=== PATIENT | male | born 1980 | race Caucasian/White ===

== ENCOUNTER → 2020-06-22 13:09 | Outpatient (BNVA) | payer SELFPAY | PROVIDERS: Referring Provider Family Medicine; Visit Provider Specialist | DX: S62.307A Unspecified fracture of fifth metacarpal bone, left hand, initial encounter for closed fracture (principal); X58.XXXA Exposure to other specified factors, initial encounter | CPT/HCPCS: 73130 ==

== ENCOUNTER 2020-06-22 14:49 | Outpatient (CLI) | payer SELFPAY | END 2020-06-22 14:50 | disposition home or self-care (01) | LOC: SPT 14:50 | PROVIDERS: Visit Provider Specialist | DX: Z46.89 Encounter for fitting and adjustment of other specified devices (principal); S62.367D Nondisplaced fracture of neck of fifth metacarpal bone, left hand, subsequent encounter for fracture with routine healing; X58.XXXD Exposure to other specified factors, subsequent encounter | CPT/HCPCS: 97760; L3984 ==

== ENCOUNTER → 2020-07-13 08:11 | Outpatient (BNVA) | payer SELFPAY | PROVIDERS: Visit Provider Specialist | DX: S62.307A Unspecified fracture of fifth metacarpal bone, left hand, initial encounter for closed fracture (principal); X58.XXXA Exposure to other specified factors, initial encounter | CPT/HCPCS: 73130 ==

== ENCOUNTER 2021-10-24 07:36 | Emergency (ER) | payer MEDICAID, SELFPAY ==
[2021-10-24 07:45] VITALS: BP 105/64; PULSE 71; RESP 20; TEMP 36.4; O2SAT 99; BMI 29.8
--- NOTE | 2021-10-24 07:45 | XRR_ITS ---
PROCEDURE INFORMATION: Exam: XR Chest Exam date and time: 10/24/2021 8:13 AM Age: 41 years old Clinical indication: Pain; Chest pressure; Additional info: Cp TECHNIQUE: Imaging protocol: XR of the chest. Views: 1 view. COMPARISON: No relevant prior studies available. FINDINGS: Lungs: No focal airspace disease. Pleural spaces: Unremarkable. No pleural effusion. No pneumothorax. Heart/Mediastinum: Cardiomediastinal silhouette is within normal limits. Bones/joints: Unremarkable. XR/XR chest 1V portable [id number] IMPRESSION: No acute cardiopulmonary abnormality.
--- NOTE | 2021-10-24 07:45 | ECG_ITS ---
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 Measurements Intervals [place] Rate: 70 P: 66 TX: 148 QRS: 61 QRSD: 91 T: 64 QT: 356 QTc: 387 Interpretive Statements SINUS RHYTHM EARLY REPOLARIZATION [ST ELEVATION WITH NORMALLY INFLECTED T-WAVE] INTERPRETATION BASED ON A DEFAULT AGE OF 39 YEARS No previous ECG available for comparison Electronically Signed On 10-24-2021 9:23:58 CDT by Parvez Quintana M.D. [id number] f
--- NOTE | 2021-10-24 08:10 | W.ED.CHESTPA ---
HPI - Chest Pain General: Chief Complaint: Chest Pain Stated Complaint: chest pain Time Seen by Provider: 10/24/21 07:45 Source: patient Mode of arrival: ambulatory Limitations: no limitations History of Present Illness: 41-year-old male who states that he diagnosed with A. fib 3 to 4 weeks ago and had a cardioversion. He states that he woke up this morning and was having palpitations he states he checked his heart rate and was jumping from the 60s to the 120s here he has been in the 60s the whole time he admitted here on the monitor was in the room. He states he is also having some chest pain and shortness of breath he states pain is sharp in nature rates it a 5 out of 10 denies any worsening improving factors. Associated symptoms: Reports palpitations; Deny abdominal pain, dyspnea, fever(s), nausea or vomiting Review of Systems Const: Denies: fever(s), chills, body aches or change in appetite Eyes: Denies: blurry vision or eye discomfort ENMT: Denies: throat pain or dental pain Card: Reports: chest pain and palpitations Resp: Denies: dyspnea GI: Denies: abdominal pain, nausea, vomiting or diarrhea : Denies: dysuria Musc: Denies: neck pain or back pain Skin/Breast: Denies: rash Neuro: Denies: headache(s) Psych: Denies: depression Rolando/Lymph: Denies: easy bruising All/Imm: Denies: urticaria PFSH ED PFSH: Family History Mother Cancer Grandfather Cancer Social History Smoking and tobacco status: current every day smoker cigarettes Quit status (tobacco): not considering quitting Smoking risk assessment/counseling performed?: No Alcohol intake: former Desire information about alcohol rehabilitation?: No Counseling given: No Physical Exam Const: COMMON NORMALS: no acute distress, patient oriented x3 and healthy appearing HENMT: COMMON NORMALS: normocephalic and atraumatic HEAD & SCALP: normocephalic and atraumatic Eye: COMMON NORMALS: Equal, round and reactive pupils present and EOMs intact bilaterally PUPIL: Yes Equal, round and reactive pupils present Neck/C-Spine: COMMON NORMALS: full ROM and supple Chest: COMMONS NORMALS: normal inspection of the chest and normal palpation of entire chest wall Resp: COMMON NORMALS: normal respiratory effort, No retractions, No use of accessory muscles and clear to auscultation bilaterally AUSCULTATION: clear to auscultation bilaterally Cardio: COMMON NORMALS: regular rate, regular rhythm and No murmurs present (Cardio) RATE: regular rate RHYTHM: regular rhythm GI: COMMON NORMALS: Normal to inspection, nondistended, normoactive bowel sounds present, Soft to palpation, non-tender and no masses PALPATION: Yes Soft to palpation Extremity: COMMON NORMALS: normal to inspection and full ROM Neuro: COMMON NORMALS: patient oriented x3, moves all extremities and no focal motor deficits Psych: COMMON NORMALS: mental status grossly normal, Normal thought process present and cooperative THOUGHT PROCESS: Normal thought process present Skin: COMMON NORMALS: no rashes or lesions noted and no wounds GENERAL SKIN EXAM: no rashes or lesions noted Course Vital Signs: Vital signs: Vital Signs Temperature 97.6 F 10/24/21 07:45 Pulse Rate 66 10/24/21 10:05 Respiratory Rate 23 H 10/24/21 10:05 Blood Pressure 105/66 10/24/21 10:05 Pulse Oximetry 94 10/24/21 10:05 MDM - Chest Pain Medical Decision Making Patient presents here with chest pain that is atypical in nature. Patient was quite anxious when he first arrived likely as he is scared that he was in A. fib again. He is not in A. fib here is blood work here is all normal he is stable for discharge he actually has follow-up with his emergency specialist on Monday and is to follow-up as scheduled he is return if worsening he understands agrees to plan. Lab Data : 10/24/21 08:05 10/24/21 08:05 Radiology Impressions Chest X-Ray 10/24/21 07:45 IMPRESSION: No acute cardiopulmonary abnormality. Laboratory Results WBC 16.1 10^3/uL (4.0-10.0) H 10/24/21 08:05 RBC 5.21 10^6/uL (4.1-5.3) 10/24/21 08:05 Hgb 15.7 g/dL (11.7-16.6) 10/24/21 08:05 Hct 45.6 % (42.0-52.0) 10/24/21 08:05 MCV 87.5 fl (80-94) 10/24/21 08:05 MCH 30.1 pg (28.0-34.0) 10/24/21 08:05 MCHC 34.4 g/dL (30.0-36.0) 10/24/21 08:05 RDW 12.7 % (12.1-15.1) 10/24/21 08:05 Plt Count 230 10^3/cmm (130-400) 10/24/21 08:05 MPV 10.7 fL (7.4-10.4) H 10/24/21 08:05 Neut % (Auto) 79.4 % 10/24/21 08:05 Lymph % (Auto) 11.5 % 10/24/21 08:05 [place] % (Auto) 6.6 % 10/24/21 08:05 Eos % (Auto) 1.2 % 10/24/21 08:05 Baso % (Auto) 0.4 % 10/24/21 08:05 Neut # (Auto) 12.81 10^3/uL (1.8-7.7) H 10/24/21 08:05 Lymph # (Auto) 1.9 10^3/uL (0.8-4.8) 10/24/21 08:05 [place] # (Auto) 1.1 10^3/uL (0.2-0.9) H 10/24/21 08:05 Eos # (Auto) 0.2 10^3/uL (0.0-0.8) 10/24/21 08:05 Baso # (Auto) 0.1 10^3/uL (0.0-0.1) 10/24/21 08:05 Nucleated RBC % (auto) 0 % 10/24/21 08:05 Nucleated RBCs # 0.0 /100WBC 10/24/21 08:05 D-Dimer 0.29 ug/mIFEU (0-0.59) 10/24/21 08:05 Sodium 137 mmol/L (136-145) 10/24/21 08:05 Potassium 4.2 mmol/L (3.5-5.1) 10/24/21 08:05 Chloride 103 mmol/L (98-107) 10/24/21 08:05 Carbon Dioxide 22 mmol/L (22-29) 10/24/21 08:05 Anion Gap 16.2 (5-19) 10/24/21 08:05 BUN 12 mg/dL (6-20) 10/24/21 08:05 Creatinine 1.1 mg/dL (0.7-1.2) 10/24/21 08:05 GFR Calculation 73.4 mL/min (90-130) L 10/24/21 08:05 Glucose 105 mg/dL (65-115) 10/24/21 08:05 Calculated Osmolality 284 mOsm/kg (285-295) L 10/24/21 08:05 Calcium 9.3 mg/dL (8.5-10.5) 10/24/21 08:05 Total Bilirubin 0.6 mg/dL (0.15-1.2) 10/24/21 08:05 AST 23 U/L (0-40) 10/24/21 08:05 ALT 56 U/L (0-41) H 10/24/21 08:05 Alkaline Phosphatase 100 IU/L (40-130) 10/24/21 08:05 Troponin T Baseline 6 ng/L (0-15) 10/24/21 08:05 Troponin T 120 Minute 6.00 ng/L (0-15) 10/24/21 09:52 Total Protein 7.0 g/dL (6.6-8.7) 10/24/21 08:05 Albumin 4.1 g/dL (3.5-5.2) 10/24/21 08:05 Globulin 2.9 g/dL (1.3-4.6) 10/24/21 08:05 EKG Data EKG 1: I personally reviewed and interpreted this EKG as follows: EKG interpretation date: 10/24/21 EKG interpretation time: 07:42 Interpretation: nsr hr [address] or t wave abnormalities qrs 91 qtc 378 Discharge Plan Discharge Patient Disposition: Home Clinical Impression: Chest pain Qualifiers: Chest pain type: unspecified Qualified Code(s): R07.9 - Chest pain, unspecified Condition: Stable Prescriptions: No Action (DME) ulnar gutter splint See Rx Instructions .Route .MEDSUPPLY Qty: 1 0RF Rx Instructions: As directed Discharge Orders: Discharge ED (Routine); Ordered 10/24/21 Ordered By: Fernanda Avalos Discharge Diet: Advance as tolerated Discharge Activity: Resume usual activity Patient Instructions: Chest Pain (ED) Coding Level of Care Code ED Wound Treatment Rn for Chg Fwd Exam Comprehensive
[2021-10-24 08:12] LABS: Basophils # 0.1 10^3/uL (0.0-0.1); Basophils % 0.4 %; Eosinophils # 0.2 10^3/uL (0.0-0.8); Eosinophils % 1.2 %; Hematocrit 45.6 % (42.0-52.0); Hemoglobin 15.7 g/dL (11.7-16.6); Lymphocytes # 1.9 10^3/uL (0.8-4.8); Lymphocytes % 11.5 %; Mean Corpuscular HGB Conc 34.4 g/dL (30.0-36.0); Mean Corpuscular Hemoglobin 30.1 pg (28.0-34.0); Mean Corpuscular Volume 87.5 fl (80-94); Mean Platelet Volume 10.7 fL (7.4-10.4); Monocytes # 1.1 10^3/uL (0.2-0.9); Monocytes % 6.6 %; Neutrophils # 12.81 10^3/uL (1.8-7.7); Neutrophils % 79.4 %; Nucleated Red Blood Cells % 0 %; Platelet Count 230 10^3/cmm (130-400); Red Blood Count 5.21 10^6/uL (4.1-5.3); Red Cell Distribution Width 12.7 % (12.1-15.1); White Blood Count 16.1 10^3/uL (4.0-10.0)
[2021-10-24 08:13] VITALS: RESP 19
[2021-10-24] MEDS: morphine 4 mg/mL SDV 1 mL IVP (08:13)
[2021-10-24] MEDS: ondansetron 2 mg/ML SDV 2 mL 4 MG IVP (08:13)
[2021-10-24 08:15] VITALS: BP 90/70; PULSE 70; RESP 19; O2SAT 99
[2021-10-24 08:26] LABS: D Dimer 0.29 ug/mIFEU (0-0.59)
[2021-10-24] MEDS: sodium chloride 0.9% 1,000 ML 999 ML IV (08:27)
[2021-10-24 08:29] LABS: Alanine Aminotransferase 56 U/L (0-41); Albumin Level 4.1 g/dL (3.5-5.2); Alkaline Phosphatase 100 IU/L (40-130); Anion Gap 16.2 (5-19); Aspartate Amino Transferase 23 U/L (0-40); Blood Urea Nitrogen 12 mg/dL (6-20); Calcium 9.3 mg/dL (8.5-10.5); Carbon Dioxide 22 mmol/L (22-29); Chloride 103 mmol/L (98-107); Globulin 2.9 g/dL (1.3-4.6); Glomerular Filtration Rate 73.4 mL/min (90-130); Glucose 105 mg/dL (65-115); Osmolality Calculated 284 mOsm/kg (285-295); Potassium 4.2 mmol/L (3.5-5.1); Sodium 137 mmol/L (136-145); Total Bilirubin 0.6 mg/dL (0.15-1.2)
[2021-10-24 08:31] LABS: Troponin(5th) Baseline 6 ng/L (0-15)
[2021-10-24 08:42] VITALS: BP 96/69; PULSE 65; RESP 20; O2SAT 94
--- NOTE | 2021-10-24 09:26 | PC.NURSE ---
EKG done at 0925 and shown to ER doctor
--- NOTE | 2021-10-24 09:45 | ECG_ITS ---
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 Measurements Intervals [place] Rate: 63 P: 69 SC: 158 QRS: 50 QRSD: 98 T: 58 QT: 395 QTc: 407 Interpretive Statements SINUS RHYTHM EARLY REPOLARIZATION [ST ELEVATION WITH NORMALLY INFLECTED T-WAVE] Compared to ECG 10/24/2021 07:42:23 No significant changes Electronically Signed On 10-24-2021 9:31:01 CDT by Parvez Quintana M.D. [id number]
[2021-10-24 10:05] VITALS: BP 105/66; PULSE 66; RESP 23; O2SAT 94
[2021-10-24 11:10] LABS: Troponin 5 2HR Delta 0 ABS# (0-10)
== END 2021-10-24 10:52 | disposition home or self-care (01) ==
PROVIDERS: Emergency Provider Emergency Medicine
DX: R07.9 Chest pain, unspecified (principal)
CPT/HCPCS: 71045; 80053; 84484; 85025; 85378; 93005; 96374; 96375; 99285; J2270; J2405; J7030

== ENCOUNTER → 2024-03-18 16:31 | Outpatient (BNVA) | payer MEDICAID, SELFPAY | PROVIDERS: Visit Provider Nurse Practitioner Family | DX: S66.911A Strain of unspecified muscle, fascia and tendon at wrist and hand level, right hand, initial encounter (principal); H66.92 Otitis media, unspecified, left ear; X58.XXXA Exposure to other specified factors, initial encounter | CPT/HCPCS: 73110 ==

== ENCOUNTER → 2024-06-11 09:48 | Outpatient (BNVA) | payer MEDICAID, SELFPAY | PROVIDERS: PCP Nurse Practitioner Family; Visit Provider Physician Assistant | DX: G56.21 Lesion of ulnar nerve, right upper limb; G56.03 Carpal tunnel syndrome, bilateral upper limbs | CPT/HCPCS: 73110 ==

== ENCOUNTER 2024-07-18 06:05 | Day surgery (SDC) | payer MEDICAID, SELFPAY ==
[2024-07-18] VITALS (9 sets, daily range): BP systolic 93–128; BP diastolic 63–86; PULSE 69–88; RESP 16–25; TEMP 36.1–36.4; O2SAT 93–98; BMI 29.8
[2024-07-18] MEDS: acetaminophen 1,000 MG/100 ML PIGGYBACK 400 MG IV (06:44)
[2024-07-18] MEDS: ketorolac 30 mg/mL INJ IVP (06:45)
[2024-07-18] MEDS: sodium chloride 0.9% 1,000 ML 30 ML IV (06:46)
--- NOTE | 2024-07-18 07:12 | P.HP_ITS ---
Same Day Surgery H&P Indication for Procedure/HPI DATE OF PROCEDURE: July 18, 2024 CHIEF COMPLAINT/INDICATIONFOR SURGICAL PROCEDURE: Right carpal tunnel syndrome, right cubital tunnel syndrome PREOP DIAGNOSIS: Right carpal tunnel syndrome, right cubital tunnel syndrome PLANNED PROCEDURE: Operation Date: 07/18/24 07:50 Proposed Procedures p Carpal Tunnel Release(Right) - Tung Lizbeth, DO s Cubital Tunnel Release(Right) - Tung Woodson, DO s Ulnar Nerve Transposition(Right) - Tung Lizbeth, DO Medications/Allergies* Allergies/Adverse Reactions Allergy/AdvReac Type Severity Reaction Status Date / Time No Known Allergies Allergy Verified 07/17/24 09:49 Current Medications: Generic Name Dose Route Start Last Admin Trade Name Freq PRN Reason Stop Dose Admin Sodium Chloride 1,000 mls @ 30 mls/hr 07/18/24 06:15 07/18/24 06:46 Sodium Chloride 0.9% IV 07/19/24 06:14 30 mls/hr .Q24H NADER Administration Pertinent History/Comorbid Conditions* Medical History (Updated 06/30/24 @ 13:26 by ESTHELA Nelson) Eustachian tube dysfunction Environmental and seasonal allergies Bilateral carpal tunnel syndrome Acute bacterial sinusitis Carpal tunnel syndrome Eustachian tube disorder Otitis media, left Strain of right wrist Family History (Updated 06/22/20 @ 13:22 by Jazmine Vanessa LPN) Grandfather Cancer Mother Grandfather Social History Smoking and tobacco/nicotine status: current every day tobacco/nicotine user cigarettes Quit status (tobacco/nicotine): not considering quitting Alcohol intake: former Pertinent Exam Findings alert, oriented x 3, operative site marked and procedure specific exam findings Please refer to detailed orthopedic examination on 06/11/2024 listed below: Right Hand exam-positive Tinel's and positive Phalen's test. No thenar atrophy and no thenar muscle weakness. Full range of motion in fingers and wrist and fi ngers are warm and well-perfused with normal cap refill under 2 seconds. Radial pulse 2+, no intrinsic muscle weakness noted. Right Elbow exam-positive Tinel's test Recommendations Surgery/Procedure today Other Plans: Plan to proceed to the OR today for right carpal tunnel release, right cubital tunnel release with possible ulnar nerve transposition. Patient understands the ins and outs procedure the risk benefits complication alternatives of surgery. All questions have been answered at this time we will proceed with surgery today. Coding Level of Care Code Acute Code for Chg Fwd
--- NOTE | 2024-07-18 07:44 | P.ANESASSM_ITS ---
Pre-Anesthetic Assessment Height/Weight: Height 1.83 m Weight 99.79 kg Temp Pulse Resp BP Pulse Ox O2 Del Method 97.5 F L 69 18 128/83 98 Room Air 07/18/24 06:23 07/18/24 06:23 07/18/24 06:23 07/18/24 06:23 07/18/24 06:23 07/18/24 06:27 Preop Diagnosis: Right carpal tunnel syndrome, right cubital tunnel syndrome Operation Date: 07/18/24 07:50 Proposed Procedures p Carpal Tunnel Release(Right) - Tung Clermont, DO s Cubital Tunnel Release(Right) - Tung Lizbeth, DO s Ulnar Nerve Transposition(Right) - Tung Lizbeth, DO Was Beta Phil taken within 24 hours: N/A Was Clonidine taken within 24 hours: N/A Last intake: Intake Last Liquid Date 07/17/24 Last Liquid Time 21:00 Last Solid Date 07/17/24 Last Solid Time 18:00 Social Tobacco Smokes weed daily Exam alert, oriented x 3, clear to auscultation bilaterally and regular rate & rhythm Airway Submandibular: within normal limits Cervical ROM: within normal limits Mallampati: Class II Dentition: false History/ROS No significant history except as noted and No significant complaints Pulmonary Cough CV/HEM Atrial Fibrillation Ablation 2 yrs ago. No A-fib since None reported Hepatic None reported GI Gastroesophageal Reflux Disease Metabolic Morbid Obesity Musc/skel Osteoarthritis/DJD Neuropsych Anxiety Had experience of becoming combative after MAC anesthetic for ablation 2 yrs ago Anesthetic Plan ASA status: 3 Anesthesia: Anesthesia Evaluation and General Risk of > 500 ml blood loss (7ml/kg in children): No Medications/Allergies Home Medications ?Medication ?Instructions ?Recorded ?Confirmed ?Last Taken ?Type cetirizine 10 mg tablet (All Day 10 mg PO DAILY PRN al lergy 05/30/24 07/17/24 07/17/24 Rx Allergy (cetirizine)) symptoms 90 days #90 tabs Allergies Allergy/AdvReac Type Severity Reaction Status Date / Time No Known Allergies Allergy Verified 07/17/24 09:49 Current Medications Generic Name Dose Route Start Last Admin Trade Name Freq PRN Reason Stop Dose Admin Sodium Chloride 1,000 mls @ 30 mls/hr 07/18/24 06:15 07/18/24 06:46 Sodium Chloride 0.9% IV 07/19/24 06:14 30 mls/hr .Q24H NADER Administration PFSH Anesthesia Medical History Eustachian tube dysfunction Environmental and seasonal allergies Bilateral carpal tunnel syndrome Acute bacterial sinusitis Carpal tunnel syndrome Eustachian tube disorder Otitis media, left Strain of right wrist Family History Mother Cancer Grandfather Cancer Social History Smoking and tobacco/nicotine status: current every day tobacco/nicotine user cigarettes Quit status (tobacco/nicotine): not considering quitting Alcohol intake: former Data Anesthesia Cardiac Studies: No Data to Display
[2024-07-18] MEDS: ceFAZolin 2,000 MG in sodium chloride 0.9% (plus) 50 ML 100 MG IV (07:59)
--- NOTE | 2024-07-18 09:03 | W.PM.BPON ---
Date of Procedure: 07/18/2024 Surgeon: Tung Nieves DO Drafting Technician(s): None Procedure(s) performed: Right carpal tunnel release Right cubital tunnel release Findings of the procedure(s): Patient underwent procedure as planned without issues or complications no subluxation of the ulnar nerve as a result no transposition was performed. Patient placed in bulky soft dressing taken back to PACU in stable condition Estimated blood loss: 5 mL Specimen(s) removed: None Post-operative diagnosis: Right carpal tunnel syndrome, right cubital tunnel syndrome
--- NOTE | 2024-07-18 09:04 | PM.OP ---
Operative Report Date of procedure: July 18, 2024 Surgeon: Tung Nieves DO Procedure: Preoperative diagnosis: Right carpal tunnel syndrome Right cubital tunnel syndrome Postoperative diagnosis: Same Procedure done: Right carpal tunnel release Right cubital tunnel tunnel release (ulnar nerve decompression at elbow) Surgeon: Tung Nieves DO Estimated blood loss: 5 mL Tourniquet 21 minutes IV fluids: See anesthesia record Complications: None Findings: See operative report narrative Condition: stable Disposition: same day Brief History: Patient's been seen and worked up in the outpatient setting and findings consistent with preoperative diagnosis.? Patient has Right carpal tunnel syndrome as well as Right cubital tunnel syndrome which has been worked up in the outpatient setting has nerve study positive for carpal tunnel and has physical exam findings consistent with this diagnosis and cubital as well. As result through shared decision making agreed to proceed with? Right carpal tunnel and Right cubital tunnel release with possible ulnar nerve transposition. we talked about treatment options as far as nonoperative and operative intervention.? Understands risk benefits complication alternatives surgical nonsurgical treatment options.? Understanding his risks he agrees to proceed with surgical intervention. Understanding these risks he agrees to proceed with surgery.? Consent obtained in office. Procedure: Patient seen evaluate in the preoperative holding area.? Consent was reviewed and signed with patient.? Correct extremity marked.? Patient seen evaluated by anesthesia department once cleared for surgery was then taken back to the operative suite placed in supine position all bony prominences well-padded patient properly secured to bed.? Right upper extremity placed onto armboard.? Nonsterile tourniquet applied Right upper arm.? Patient then underwent anesthesia per the anesthesia department.? Patient's Right upper extremity was then prepped and draped in standard orthopedic fashion.? Final timeout performed.? Patient received appropriate preoperative antibiotics. Esmarch was used exsanguinate the Right upper extremity.? Tourniquet was insufflated to 250 mmHg. I started with the carpal tunnel release first.? I made a standard open carpal tunnel release starting with the distal most extent in the palm at the Hein's cardinal line and the incision line was made in line with the fourth ray and ended just distal to the wrist crease.? Sharp scalpel incision was made through skin and subcutaneous tissue I then utilizing self retainer then began to dissect with dissection scissors split longitudinally the palmar fascia.? Next I then utilizing my television production assistant Keya retractors subsequently utilizing scalpel feathered through the palmaris brevis as well as through the transverse carpal ligament distally.? Once I encountered the floor of the transverse carpal ligament and entered into the carpal tunnel I then switched to dissection scissors.? Carefully released the distal extent of the transverse carpal ligament to the palmar fat.? Care was to protect the recurrent branch and not injured this during this part of the case.? Next I then placed a [place] underneath the transverse carpal ligament proximally to protect the nerve in the carpal tunnel contents.? And then I subsequently under loupe magnification utilize my dissection scissors to release the transverse carpal ligament into the antebrachial fascia under direct visualization with care to keep my scissors with a curved ulnarly away from the palmar cutaneous branch.? The transverse carpal was then completely decompressed proximally and a [place] was then placed both distally and proximally throughout the carpal tunnel and had complete decompression of the nerve.? The nerve did appear to have hourglass shape as it went through the carpal tunnel.? With significant irritation noted around the nerve.? No masses were noted within the contents of the carpal tunnel.? This completed the carpal tunnel release and then I subsequently irrigated the wound bed and placed a wet Ray-Qing into the incision for later closure. Next marked out the landmarks of the Right elbow of the medial epicondyle and olecranon and made a curvilinear incision following the course of the ulnar nerve at the medial aspect of the elbow.? Sharp scalpel incision was made through skin and subcutaneous tissue.? Next I switched to Littler dissection scissors and spread in plane of the medial antebrachial cutaneous nerve branching which was protected throughout this part of the dissection.? Then I directly came down over the fascia and identified the 2 heads of the FCU fascia and split this right in the middle and subsequently identified my ulnar nerve distally.? This was then completely released distally under direct visualization and loupe magnification.? Once the nerve was then identified I then subsequently tracked this proximally and released this through Kelly's ligament as well as complete decompression of the nerve proximally all the way past the intermuscular septum.? The nerve was completely released and decompressed both proximally and distally.? Ulnar nerve neurolysis performed and completed both proximally and distally with dissection scissors.? At this point in time in-situ release was completed I then subsequently took the elbow through range of motion and no subluxation of the ulnar nerve was noted over the medial epicondyle as a result no plan for transposition. This did complete the procedure. ? Tourniquet was deflated.? Maintained exact hemostasis with bipolar electrocautery.?As result the skin was reapproximated with interrupted Vicryl subcutaneous suture 3-0.? I next utilized a running horizontal mattress stitch with 3-0 nylon.? Extremity was then cleaned and the incision was then covered with Xeroform 4 x 4's ABD Curlex and soft roll and then applied with an Ang wrap.? Patient was then awakened from anesthesia and taken to PACU in stable condition. Disposition: Patient taken to PACU in stable condition.? Patient given appropriate discharge instructions as well as pain medication.? Patient will see me in office in 2 weeks.? pt understands? if they has any questions they can contact the office.
--- NOTE | 2024-07-18 09:25 | PM.PACU ---
PACU note Narrative: Patient is a 43-year-old male just underwent a right carpal tunnel and right cubital tunnel release. Patient transferred to PACU in stable condition. Pain is well controlled. Dressing on hand and arm is dry and in place. Patient's fingers are warm and well-perfused. normal cap refill under 2 seconds. Sensation to hand intact and patient can wiggle fingers. Pain is controlled. Exam: awake Disposition: discharged
--- NOTE | 2024-07-18 10:20 | ANE.PACU2 ---
Inpatient post-anesthesia follow up: Airway intact: Yes Vital signs: Temperature 97 F Pulse Rate 82 Respiratory Rate 17 Blood Pressure 116/86 Pulse Oximetry 95 Oxygen Delivery Me thod Room Air Oxygen Flow Rate Fraction of Inspir ed Oxygen Hydration adequate: Yes Nausea and vomiting: No Pain level: 1 Mental status: Baseline
== END 2024-07-18 10:27 | disposition home or self-care (01) ==
PROVIDERS: PCP Nurse Practitioner Family; Visit Provider Student in an Organized Health Care Education/Training Program
PROC: (CPT 64721; principal; 2024-07-18 07:50)
PROC: (CPT 64718; 2024-07-18 07:50)
DX: G56.01 Carpal tunnel syndrome, right upper limb (principal); G56.21 Lesion of ulnar nerve, right upper limb; F17.210 Nicotine dependence, cigarettes, uncomplicated; K21.9 Gastro-esophageal reflux disease without esophagitis; E66.01 Morbid (severe) obesity due to excess calories; F41.9 Anxiety disorder, unspecified; Z68.29 Body mass index [BMI] 29.0-29.9, adult; Z79.899 Other long term (current) drug therapy
CPT/HCPCS: 64718; 64721; J0131; J0690; J1100; J1885; J2250; J2704; J2795; J3010; J3490; J7030

== ENCOUNTER → 2024-09-09 08:48 | Outpatient (BNVA) | payer MEDICAID, SELFPAY | PROVIDERS: PCP Nurse Practitioner Family; Visit Provider Nurse Practitioner Family | DX: S63.501A Unspecified sprain of right wrist, initial encounter (principal); S62.101A Fracture of unspecified carpal bone, right wrist, initial encounter for closed fracture; X58.XXXA Exposure to other specified factors, initial encounter | CPT/HCPCS: 73110 ==

== ENCOUNTER 2024-09-16 13:59 | Outpatient (CLI) | payer MEDICAID, SELFPAY | END 2024-09-16 14:00 | disposition home or self-care (01) | LOC: SPT 13:59 | PROVIDERS: PCP Nurse Practitioner Family; Visit Provider Student in an Organized Health Care Education/Training Program | DX: Z46.89 Encounter for fitting and adjustment of other specified devices (principal); M25.531 Pain in right wrist | CPT/HCPCS: L3908 ==

== ENCOUNTER 2024-09-20 15:41 | Outpatient (CLI) | payer MEDICAID, SELFPAY ==
--- NOTE | 2024-09-20 16:00 | MRR_ITS ---
PROCEDURE INFORMATION: Exam: MR Right Upper Extremity Joint Without Contrast; Wrist Exam date and time: 09/20/2024 4:09 PM Age: 44 years old Clinical indication: Injury or trauma; Sprain or strain; Right; Injury details: PT had carpal tunnel surgery 07/17/24. Had incident lifting railroad tie and injured wrist post op. Unknown metal artifact in hand- PT unaware. Prior surgery; Surgery date: 1-6 months; Surgery type: Carpal tunnel 07/17/24; Additional info: Right wrist injury/rule out sl ligament injury TECHNIQUE: Imaging protocol: Magnetic resonance imaging of the right upper extremity without contrast. Exam focused on the wrist. COMPARISON: CR XR wrist RT min 3V* [id number] 09/09/2024 8:51 AM FINDINGS: Bones/joints: No marrow edema, fracture or bone destruction is appreciated. There are subchondral cyst formation involving the proximal lunate and to a lesser degree the capitate and triquetral bones. There are there are also subchondral cysts involving the proximal ulna. There is cartilage thinning involving the radiocarpal articulation. There is a physiologic amount of fluid within the radiocarpal, intercarpal, carpometacarpal and distal radioulnar joints.. Scapholunate ligament: Unremarkable. No tear. Lunotriquetral ligament: Unremarkable. No tear. Triangular fibrocartilage complex: There is irregularity involving the central disc of the TFC with possible small perforation.. No definite tear is noted involving the ulnar or radial attachments. The dorsal and volar radioulnar ligaments appear to be intact. Flexor compartment tendons: Unremarkable. No tear. Extensor compartment tendons: Unremarkable. No tear. Soft tissues: Unremarkable. MR/MR wrist RT wo con* [id number] IMPRESSION: 1. Cartilage thinning involving the radiocarpal articulation. There are small subchondral cysts involving the proximal lunate and to a lesser degree the capitate, triquetral bone and distal ulna. 2. Irregularity involving the articular disc of the TFC with possible small perforation.
== END 2024-09-20 15:42 | disposition home or self-care (01) ==
LOC: RAD 15:42
PROVIDERS: PCP Nurse Practitioner Family; Visit Provider Student in an Organized Health Care Education/Training Program
DX: S63.501A Unspecified sprain of right wrist, initial encounter (principal); S69.91XA Unspecified injury of right wrist, hand and finger(s), initial encounter; R93.6 Abnormal findings on diagnostic imaging of limbs; M85.68 Other cyst of bone, other site; X58.XXXA Exposure to other specified factors, initial encounter
CPT/HCPCS: 73221

== ENCOUNTER → 2025-01-07 09:16 | Outpatient (BNVA) | payer MEDICAID, SELFPAY | PROVIDERS: PCP Nurse Practitioner Family; Visit Provider Nurse Practitioner Family | DX: Z79.899 Other long term (current) drug therapy (principal); Z13.6 Encounter for screening for cardiovascular disorders; Z13.220 Encounter for screening for lipoid disorders; R53.83 Other fatigue | CPT/HCPCS: 80053; 80061; 81003; 82306; 83036; 84443; 85025 ==

== ENCOUNTER → 2025-05-20 09:35 | Outpatient (BNVA) | payer MEDICAID, SELFPAY | PROVIDERS: PCP Nurse Practitioner Family; Visit Provider Nurse Practitioner Family | DX: I10 Essential (primary) hypertension (principal); R51.9 Headache, unspecified; Z98.890 Other specified postprocedural states | CPT/HCPCS: 80053; 80061; 81003; 82088; 82306; 82310; 83036; 83970; 84146; 84244; 84443; 85025 ==